=== PATIENT | female | born 1995 | race Caucasian/White ===

== ENCOUNTER → 2021-06-07 | Outpatient (CLI) | payer OTHER | LOC: M WHC 13:31 | PROVIDERS: ATTEND Advanced Practice Midwife | DX: Z34.83 Encounter for supervision of other normal pregnancy, third trimester (principal); E05.90 Thyrotoxicosis, unspecified without thyrotoxic crisis or storm; Z53.9 Procedure and treatment not carried out, unspecified reason ==

== ENCOUNTER → 2021-06-22 | Outpatient (CLI) | payer OTHER ==
--- NOTE | 2021-06-22 12:58 | REP ---
INDICATION: HYPERTHRYODISM, GROWTH. COMPARISON: None. TECHNIQUE: Routine ultrasound FINDINGS: Single living intrauterine fetus in vertex presentation. Posterior grade 2 placenta. heart rate 146 beats per minute. No placenta previa present. Three vessels noted in the umbilical cord. Size: BPD 8.5 cm, head circumference 30.7 cm, abdominal circumference 29.1 cm, femur length, 6.4 cm. The average gestational age from today's measurements is 33 weeks and 2 days. weight calculi at 21:50 6 g. Anatomic survey was completed and no anomaly is demonstrated. HARRIET calculated 08/08/2021 IMPRESSION: Living intrauterine fetus with HARRIET 08/08/2021. Vertex presentation. <Electronically signed by Mason Sotomayor > 06/22/21 [id number]
== END ==
LOC: M WHC 09:29
PROVIDERS: ATTEND Advanced Practice Midwife
DX: O99.283 Endocrine, nutritional and metabolic diseases complicating pregnancy, third trimester (principal); E05.90 Thyrotoxicosis, unspecified without thyrotoxic crisis or storm; Z3A.33 33 weeks gestation of pregnancy
CPT/HCPCS: 76811; 76820; G0463

== ENCOUNTER → 2021-06-27 | Outpatient (CLI) | payer OTHER ==
[2021-06-27 16:04] LABS: FREE T3 2.4 PG/ML (2.2-4.0); FREE T4 0.92 NG/DL (0.76-1.46); THYROID STIMULATING HORMONE 0.683 uIU/ML (0.358-3.740)
== END ==
LOC: M PLALAB 11:32
DX: O99.282 Endocrine, nutritional and metabolic diseases complicating pregnancy, second trimester (principal); E05.90 Thyrotoxicosis, unspecified without thyrotoxic crisis or storm; Z3A.26 26 weeks gestation of pregnancy

== ENCOUNTER → 2021-07-06 | Outpatient (REF) | payer OTHER | LOC: M SFHCWAGY 13:05 | PROVIDERS: ATTEND Advanced Practice Midwife | DX: Z34.83 Encounter for supervision of other normal pregnancy, third trimester (principal); Z3A.35 35 weeks gestation of pregnancy | CPT/HCPCS: 87081; G0463 ==

== ENCOUNTER → 2021-07-12 | Outpatient (CLI) | payer OTHER ==
[2021-07-12 12:46] LABS: HEMATOCRIT 35.9 % (36.0-47.0); HEMOGLOBIN 11.5 g/dl (12.0-15.5); MEAN CORPUSCULAR HEMOGLOBIN 28.2 pg (27.0-33.0); PLATELET COUNT, AUTOMATED 117 10^3/uL (150-450); RED BLOOD COUNT 4.08 10^6/uL (4.00-5.40); WHITE BLOOD COUNT 8.3 10^3/uL (4.0-10.0)
[2021-07-12 13:13] LABS: FREE T4 0.94 NG/DL (0.76-1.46); THYROID STIMULATING HORMONE 1.34 uIU/ML (0.358-3.740)
== END ==
LOC: M PLALAB 08:04
PROVIDERS: ATTEND Advanced Practice Midwife
DX: O99.283 Endocrine, nutritional and metabolic diseases complicating pregnancy, third trimester (principal)

== ENCOUNTER → 2021-07-20 | Outpatient (CLI) | payer OTHER ==
[~2021-07-20] MED LIST: ACET-683 PO; DOCU100C16 PO; IBUP-1022 PO; NOXI1TAB PO; PRENTAB9 PO; WELLTAB38 PO; vibrid PO
--- NOTE | 2021-07-20 14:22 | REP ---
INDICATION: GROWTH HYPERTHYROIDISM. COMPARISON: None. TECHNIQUE: Transabdominal scanning FINDINGS: Multiple ultrasonographic images of the gravid uterus shows a single living intrauterine gestation in the cephalic presentation. Doppler interrogation of the heart shows a heart rate of 136 beats per minute. The placenta is posterior and not low-lying. The cervix measures 1 cm in length and appears closed. The subjective amniotic fluid volume is within normal limits for the calculated amniotic fluid index is 15.5 with an expected range of 7.4-24.0. BPD: 9.1 cm 37 weeks 1 day HC: 32.6 cm 36 weeks 6 day AC: 33.0 cm 36 weeks 6 days FL: 7.2 cm 36 weeks 6 days The estimated weight is 3067 g which is at the 39th percentile for 37 week 5 day gestational age. Doppler interrogation of the umbilical artery shows an A\B ratio of 2.02. This is within the normal range. IMPRESSION: Single living intrauterine gestation as described above with an estimated gestational age of 36 weeks 5 days via composite criteria and an estimated date of delivery of 08/12/2021 by today's exam. <Electronically signed by Augustin Belcher > 07/20/21 [id number]
== END ==
LOC: M WHC 12:20
PROVIDERS: ATTEND Advanced Practice Midwife
DX: O99.283 Endocrine, nutritional and metabolic diseases complicating pregnancy, third trimester (principal); E05.90 Thyrotoxicosis, unspecified without thyrotoxic crisis or storm; Z3A.36 36 weeks gestation of pregnancy
CPT/HCPCS: 76816; 76817; 76820; G0463

== ENCOUNTER → 2021-07-29 | Outpatient (CLI) | payer OTHER ==
[2021-07-29 12:18] LABS: FREE T3 2.2 PG/ML (2.2-4.0); FREE T4 0.98 NG/DL (0.76-1.46); THYROID STIMULATING HORMONE 1.15 uIU/ML (0.358-3.740)
== END ==
LOC: M PLALAB 08:33
PROVIDERS: ATTEND Internal Medicine Endocrinology, Diabetes & Metabolism
DX: E05.90 Thyrotoxicosis, unspecified without thyrotoxic crisis or storm (principal)

== ENCOUNTER 2021-08-04 07:23 | Inpatient (IN) | payer OTHER ==
[~2021-08-04] VITALS: Ht 162.6 cm; Wt 66.1 kg
[2021-08-04] VITALS (13 sets, daily range): BP systolic 122–171; BP diastolic 79–120
[2021-08-04] MEDS ORDERED: PRENTAB9 PO (07:42)
[2021-08-04] MEDS ORDERED: WELLTAB38 PO (07:42)
[2021-08-04] MEDS ORDERED: vibrid PO (07:42)
[2021-08-04] MEDS ORDERED: NOXI1TAB PO (07:43)
[2021-08-04] MEDS ORDERED: HOME MED LIST COMPLETE! XX SCH (07:45)
[2021-08-04] MEDS ORDERED: OXYTOCIN 30 UNITS IN 0.9% NaCl 500ML IV BAG (J2590) As Ordered ONE (08:57)
[2021-08-04 09:20] LABS: HEMATOCRIT 36.1 % (36.0-47.0); HEMOGLOBIN 11.9 g/dl (12.0-15.5); MEAN CORPUSCULAR VOLUME 84.9 fl (80.0-96.0); PLATELET COUNT, AUTOMATED 112 10^3/uL (150-450); RED BLOOD COUNT 4.25 10^6/uL (4.00-5.40); WHITE BLOOD COUNT 14.8 10^3/uL (4.0-10.0)
--- NOTE | 2021-08-04 09:21 | HPEPDOC ---
Obstetrical History & Physical General Date of Admission Aug 04, 2021 at 08:51 History of Present Illness 26-year-old 2 para 0 at 39 weeks 6 days presents in active labor with co ntractions. course has been unremarkable she is a transfer care at 31 weeks from [place]. course is remarkable gestational thrombocytopenia and history of hypothyroidism currently taking PTU 30mg twice daily Chief Complaint: Contractions, term Age: 26 Dating Final EDC: Aug 05, 2021 Final EDC by: 1st trimester (US) EGA at Admission: 39 Past Medical History Past Obstetrical History : Past Obstetrical History: [employer] History: Spontaneous Past Medical History Surgical History: Hernia repair, Tonsilectomy Family History Significant Family History: Cancer, Heart disease Social History Marital Status: Psychosocial History: No pertinent psych hx * Smoker: non-smoker Alcohol: Denies Drugs: denies Allergies Coded Allergies: Penicillins (Verified Allergy, Severe, hives,swellling, 08/04/21) Medications Scheduled Bupropion HCl (Wellbutrin Xl) 150 Mg Tab.er.24h, 150 MG PO DAILY No.137/Iron/Folic Acd ( Vitamin Tablet) 1 Each Tablet, 1 TAB PO DAILY Vitamin D3/Folic Acid (Noxifol-D3 2,500 Unit-1 mg Tab) 2,500 Unit Tablet, 1 TAB PO DAILY [vibrid] , 10 MG PO DAILY Physical Examination Physical Examination GENERAL: Alert and oriented times three. BREAST: . ABDOMEN: Gravid and non-tender to touch. FETUS: Is vertex (VTX) by sterile vaginal examination (SVE), fetus is vertex (VTX) by Dieter. HEART RATE: Regular rate and rhythm. LUNGS: Clear to auscultation (CTA). Vital Signs/I&O Vital Signs Date Time Temp Pulse Resp B/P (MAP) Pulse Ox O2 Delivery O2 Flow Rate FiO2 08/04/21 07:45 97.7 76 20 127/87 (100) 97 Room Air Laboratory Data 24H LABS Laboratory Tests 2 08/04/21 08:52: CBC/BMP Pertinent Laboratoy Data Blood Type: A+ RBC Antibody Screen: Negative HIV: Negative Hepatitis B: Negative Rapid Plasma Reagin: Nonreactive Rubella: Immune Chlamydia/Gonorrhea: Negative Group B Streptococcus: Negative Glucose Tolerance Test: 108 Anatomy Ultrasound Normal Anatomy: Yes Vaginal Examination Dilation: 8 cm Effacement: 100% Station: -1, 0 Presentation: Cephalic presentation Assessment Variability: Moderate Accelerations: Positive Tocometer Contractions: Yes Frequency: regular Assessment/Plan Assessment 26-year-old 2 para 0 at 39 weeks 6 days estimated gestational age in active labor Reassuring status Plan Admit and orient. 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 Group B Streptococcus (GBS) negative. Labs and intravenous (IV) per unit protocol. Counseled on Pitocin and induction of labor (IOL). Anticipate normal spontaneous delivery (). C-S as appropriate. MARY MSART MD. Aug 04, 2021 09:21
[2021-08-04] MEDS ORDERED: LIDOCAINE 1% MDV 20ML VIAL SC STA (10:23)
[2021-08-04] MEDS ORDERED: LIDOCAINE 1% MDV 20ML VIAL As Ordered ONE (10:25)
[2021-08-04] MEDS ORDERED: ANUSOL HC CREAM 30GM TOP PRN (11:00)
[2021-08-04] MEDS ORDERED: MEASLES,MUMPS,RUBELLA VACCINE INJ (MMR-II) (90707) SC SCH (11:00)
[2021-08-04] MEDS ORDERED: METHYLERGONOVINE MALEATE 0.2 MG TAB PO PRN (11:00)
[2021-08-04] MEDS ORDERED: IBUPROFEN 600MG TAB PO PRN (11:00)
[2021-08-04] MEDS ORDERED: IBUPROFEN 800 MG TAB PO PRN (11:00)
[2021-08-04] MEDS ORDERED: RHOGAM 300 MCG (1500 IU) INJ (J2790) IM SCH (11:00)
[2021-08-04] MEDS ORDERED: OXYTOCIN DRIP 30 UNITS in IV 1 EA IV SCH (11:00)
[2021-08-04] MEDS ORDERED: MOM 30ML SUSPENSION UDC PO PRN (11:00)
[2021-08-04] MEDS ORDERED: ACETAMINOPHEN TAB 650MG DOSE (2X325MG) PO PRN (11:00)
--- NOTE | 2021-08-04 11:01 | DNPDOC ---
[facility] Delivery Note Delivery Note DATE OF DELIVERY: August 04, 2021 TIME OF : 1020 GENDER: Male. APGARS: 9 and 9. WEIGHT: 3610 grams or 7 pounds 15ounces. LACERATIONS: 2MLL ANESTHESIA: None ESTIMATED BLOOD LOSS: 300 ml COUNTS: 5 laparotomy sponges accounted for prior to after delivery. 3 sharps removed from delivery field. DELIVERY NOTE: On August 04, 2021 at 1020 Mrs. Cannon is a 26-year-old 2 now para 1 had a spontaneous vaginal delivery of a liveborn male Apgars 9 and 9 weight was 3610 g or 7 pounds 15 ounces. Head was delivered occiput anterior (OA), followed by delivery of the shoulders and corpus. Infant was handed to mom with a good cry. Cord was clamped times two and was cut by support person under my direction. Placenta was then drained and delivered grossly intact. A premixed bag of 500 mL of normal saline with 30 units of Pitocin was then bolused along with uterine massage until the uterus was firm. On inspection there was a 2MLL that was repaired with 3-0 Vicryl after infusion with 1% lidocaine. On reinspection, cervix, vagina, perineum was grossly intact and hemostatic. Mom and baby in recovery on stable condition. Couples decided to do a new son Ayaan. MARY SMART MD. Aug 04, 2021 11:01
[2021-08-04] MEDS: buPROPion **XL** TABLET 150MG (WELLBUTRIN XL) PO SCH (12:21)
[2021-08-04] MEDS: PRENATAL VITAMINS CHEWABLE TABLET PO SCH (12:21)
[2021-08-04] MEDS: DIBUCAINE 1% OINTMENT 30GM TOP PRN (15:23)
[2021-08-05 05:23] VITALS: BP 120/73
[2021-08-05] MEDS ORDERED: INFLUENZA QUADRIVALENT PF VACCINE 0.5ML SYRINGE IM ONE (09:00)
[2021-08-05] MEDS: buPROPion **XL** TABLET 150MG (WELLBUTRIN XL) PO SCH (09:09)
[2021-08-05] MEDS: PRENATAL VITAMINS CHEWABLE TABLET PO SCH (09:09)
[2021-08-05] MEDS: DIBUCAINE 1% OINTMENT 30GM TOP PRN (10:38)
[2021-08-05] MEDS: ACETAMINOPHEN 500 MG TAB PO PRN (16:49)
[2021-08-05] MEDS: DOCUSATE SODIUM 100MG CAPSULE PO PRN (18:20)
[2021-08-05 18:35] VITALS: BP 122/93
[2021-08-06 06:00] VITALS: BP 123/84
[2021-08-06] MEDS: DIBUCAINE 1% OINTMENT 30GM TOP PRN (06:34)
[2021-08-06] MEDS: PRENATAL VITAMINS CHEWABLE TABLET PO SCH (08:45)
[2021-08-06] MEDS: buPROPion **XL** TABLET 150MG (WELLBUTRIN XL) PO SCH (08:46)
[2021-08-06] MEDS ORDERED: ACET-683 PO (10:52)
[2021-08-06] MEDS ORDERED: IBUP-1022 PO (10:52)
[2021-08-06] MEDS ORDERED: DOCU100C16 PO (10:52)
[2021-08-06] MEDS: DOCUSATE SODIUM 100MG CAPSULE PO PRN (12:23)
[2021-08-06] MEDS: ACETAMINOPHEN 500 MG TAB PO PRN (12:23)
--- NOTE | 2021-08-06 12:40 | IPNPDOC ---
Progress Note Date of Service: Aug 06, 2021 Day#: 2 Progress Note SUBJECT: Patient is a 26-year-old G 2 P 1011 status post uncomplicated vaginal delivery at 39-6/7 weeks' doing well day #2. She has been ambulating, voiding spontaneously without issue and tolerating regular diet. Breast feeding without issue. Reports lochia is like a normal period. Patient is ambulating well. Reports some cramping, well controlled with medication. Voiding and ambulating without difficulty. OBJECTIVE: VITAL SIGNS: Within normal limits, afebrile. Alert and oriented times three. Breath sounds clear to auscultation. Heart rate: Regular rate and rhythm, no murmurs, rubs or gallops. Abdomen: Fundus firm at U-2. Soft, NTTP. Minimal to moderate lochia. ASSESSMENT: Patient is a 26-year-old G 2 P 1011 status post uncomplicated vaginal delivery after presenting to labor and delivery with contractions. Doing well on day 2. Vitals within normal limits, afebrile, hemodynamically stable with no evidence of infection. PLAN: 1. Discharge to home today. 2. Tylenol and Motrin for pain. 3. Encourage breast feeding and ambulation. 4. Patient declined contraception 5. Routine PP visit in 6 weeks in clinic. 6. Discussed return precautions at length. VS, I&O, 24H, Fishbone Vital Signs/I&O Vital Signs Date Time Temp Pulse Resp B/P (MAP) Pulse Ox O2 Delivery O2 Flow Rate FiO2 08/06/21 06:00 97.3 83 16 123/84 (97) 97 Room Air VANESSA SOTO MD Aug 06, 2021 12:40
== END 2021-08-06 12:40 | disposition home or self-care (01) | DRG 807 ==
LOC: M LDO 07:23 → M LDI 08:51 → M OBS 14:20
PROVIDERS: ADMIT Obstetrics & Gynecology; ATTEND Obstetrics & Gynecology
PROC: 10E0XZZ Delivery of Products of Conception, External Approach (ICD-10-PCS; principal; 2021-08-04)
PROC: 0KQM0ZZ Repair Perineum Muscle, Open Approach (ICD-10-PCS; 2021-08-04)
DX: O99.12 Other diseases of the blood and blood-forming organs and certain disorders involving the immune mechanism complicating childbirth (principal); Z37.0 Single live birth; D69.6 Thrombocytopenia, unspecified; O99.284 Endocrine, nutritional and metabolic diseases complicating childbirth; E03.9 Hypothyroidism, unspecified; Z3A.39 39 weeks gestation of pregnancy; O70.1 Second degree perineal laceration during delivery

== ENCOUNTER → 2021-09-16 | Outpatient (CLI) | payer OTHER ==
[2021-09-16 11:50] LABS: FREE T3 2.5 PG/ML (2.2-4.0); FREE T4 0.9 NG/DL (0.76-1.46); THYROID STIMULATING HORMONE 0.758 uIU/ML (0.358-3.740)
== END ==
LOC: M PLALAB 08:07
PROVIDERS: ATTEND Internal Medicine Endocrinology, Diabetes & Metabolism
DX: E05.90 Thyrotoxicosis, unspecified without thyrotoxic crisis or storm (principal)

== ENCOUNTER → 2021-12-16 | Outpatient (REF) | payer OTHER | LOC: M SFHCWAGY 17:11 | PROVIDERS: ATTEND Obstetrics & Gynecology | DX: Z12.4 Encounter for screening for malignant neoplasm of cervix (principal) ==

== ENCOUNTER → 2021-12-22 | Outpatient (CLI) | payer OTHER ==
[2021-12-22 11:35] LABS: BASO % 0.6 % (0.0-1.0); EOS # 0.1 10^3/uL (0.0-0.5); EOS % 2.2 % (0.0-3.0); HEMATOCRIT 39.9 % (36.0-47.0); LYMPH # 1.7 10^3/uL (1.5-5.0); LYMPH % 31.9 % (24.0-44.0); MEAN CORPUSCULAR HEMOGLOBIN 28.6 pg (27.0-33.0); MEAN CORPUSCULAR HGB CONC 32.6 g/dl (32.0-36.5); MEAN CORPUSCULAR VOLUME 87.9 fl (80.0-96.0); MONO # 0.3 10^3/uL (0.0-0.8); MONO % 5.8 % (2.0-8.0); NEUTROPHILS # 3.2 10^3/uL (1.5-8.5); NEUTROPHILS % 59.1 % (36.0-66.0); PLATELET COUNT, AUTOMATED 205 10^3/uL (150-450); RED BLOOD COUNT 4.54 10^6/uL (4.00-5.40); WHITE BLOOD COUNT 5.4 10^3/uL (4.0-10.0)
[2021-12-22 12:23] LABS: FREE T3 2.3 PG/ML (2.2-4.0); FREE T4 0.94 NG/DL (0.76-1.46); THYROID STIMULATING HORMONE 1.08 uIU/ML (0.358-3.740)
== END ==
LOC: M PLALAB 08:05
PROVIDERS: ATTEND Internal Medicine Endocrinology, Diabetes & Metabolism
DX: E05.90 Thyrotoxicosis, unspecified without thyrotoxic crisis or storm (principal)

== ENCOUNTER → 2022-06-15 | Outpatient (CLI) | payer OTHER ==
[2022-06-15 12:08] LABS: FREE T4 0.96 NG/DL (0.76-1.46); THYROID STIMULATING HORMONE 0.957 uIU/ML (0.358-3.740)
[2022-06-20 04:11] LABS: FREE T3 2.5 PG/ML (2.2-4.0)
== END ==
LOC: M PLALAB 08:03
PROVIDERS: ATTEND Internal Medicine Endocrinology, Diabetes & Metabolism
DX: E06.3 Autoimmune thyroiditis (principal)

== ENCOUNTER → 2022-12-05 | Outpatient (CLI) | payer OTHER ==
[2022-12-05 13:47] LABS: FREE T4 1.25 NG/DL (0.89-1.76); THYROID STIMULATING HORMONE 0.399 uIU/ML (0.55-4.78)
== END ==
LOC: M PLALAB 10:23
PROVIDERS: ATTEND Internal Medicine Endocrinology, Diabetes & Metabolism
DX: E06.3 Autoimmune thyroiditis (principal)

== ENCOUNTER → 2022-12-05 | Outpatient (CLI) | payer OTHER ==
[2022-12-05 13:23] LABS: BASO % 0.5 % (0.0-1.0); EOS # 0.2 10^3/uL (0.0-0.5); EOS % 2.1 % (0.0-3.0); LYMPH # 1.6 10^3/uL (1.5-5.0); LYMPH % 21.6 % (24.0-44.0); MEAN CORPUSCULAR HEMOGLOBIN 28.5 pg (27.0-33.0); MEAN CORPUSCULAR HGB CONC 31.8 g/dl (32.0-36.5); MEAN CORPUSCULAR VOLUME 89.6 fl (80.0-96.0); MONO # 0.5 10^3/uL (0.0-0.8); MONO % 6.6 % (2.0-8.0); NEUTROPHILS # 5.1 10^3/uL (1.5-8.5); NEUTROPHILS % 68.8 % (36.0-66.0); PLATELET COUNT, AUTOMATED 226 10^3/uL (150-450); RED BLOOD COUNT 4.91 10^6/uL (4.00-5.40); WHITE BLOOD COUNT 7.5 10^3/uL (4.0-10.0)
[2022-12-05 13:48] LABS: IRON (FE) 187 UG/DL (50-170); PERCENT SATURATION 51.9 % (13.2-45.0); TOTAL IRON BINDING CAPACITY 360 UG/DL (250-425)
[2022-12-05 13:49] LABS: ALBUMIN 3.9 G/DL (3.2-5.2); ALKALINE PHOSPHATASE 48 U/L (46-116); ALT/SGPT 17 U/L (7.0-40); AST/SGOT 20 U/L (<34); BILIRUBIN,TOTAL 1.6 MG/DL (0.3-1.2); BLOOD UREA NITROGEN 12 MG/DL (9-23); CALCIUM LEVEL 9.3 MG/DL (8.5-10.1); CARBON DIOXIDE LEVEL 28 MMOL/L (20-31); CHLORIDE LEVEL 105 MMOL/L (98-107); GLOMERULAR FILTRATION RATE > 60.0 (>60); GLUCOSE, FASTING 77 MG/DL (60-100); POTASSIUM SERUM 4.4 MMOL/L (3.5-5.1); SODIUM LEVEL 140 MMOL/L (136-145); TOTAL PROTEIN 6.5 G/DL (5.7-8.2)
== END ==
LOC: M PLALAB 10:25
PROVIDERS: ATTEND Nurse Practitioner Adult Health
DX: Z13.228 Encounter for screening for other metabolic disorders (principal); Z13.29 Encounter for screening for other suspected endocrine disorder

== ENCOUNTER → 2023-02-12 | Outpatient (REF) | payer OTHER | LOC: M SFHCWAGY 10:04 | PROVIDERS: ATTEND Obstetrics & Gynecology | DX: Z01.419 Encounter for gynecological examination (general) (routine) without abnormal findings (principal) ==

== ENCOUNTER → 2023-03-27 | Outpatient (CLI) | payer OTHER ==
[2023-03-27 14:29] LABS: FREE T3 3.1 PG/ML (2.3-4.2); FREE T4 1.08 NG/DL (0.89-1.76)
[2023-03-27 14:30] LABS: THYROID STIMULATING HORMONE 0.885 uIU/ML (0.55-4.78)
== END ==
LOC: M PLALAB 09:05
PROVIDERS: ATTEND Internal Medicine Endocrinology, Diabetes & Metabolism
DX: E05.90 Thyrotoxicosis, unspecified without thyrotoxic crisis or storm (principal); E06.3 Autoimmune thyroiditis

== ENCOUNTER → 2023-03-27 | Outpatient (CLI) | payer OTHER ==
[2023-03-27 13:58] LABS: BASO % 0.5 % (0.0-1.0); EOS # 0.1 10^3/uL (0.0-0.5); EOS % 1.6 % (0.0-3.0); HEMOGLOBIN 12.9 g/dl (12.0-15.5); LYMPH # 1.6 10^3/uL (1.5-5.0); LYMPH % 27.7 % (24.0-44.0); MEAN CORPUSCULAR HEMOGLOBIN 28.7 pg (27.0-33.0); MEAN CORPUSCULAR HGB CONC 32.3 g/dl (32.0-36.5); MEAN CORPUSCULAR VOLUME 88.9 fl (80.0-96.0); MONO # 0.4 10^3/uL (0.0-0.8); MONO % 6.6 % (2.0-8.0); NEUTROPHILS # 3.6 10^3/uL (1.5-8.5); NEUTROPHILS % 63.1 % (36.0-66.0); PLATELET COUNT, AUTOMATED 173 10^3/uL (150-450); WHITE BLOOD COUNT 5.7 10^3/uL (4.0-10.0)
[2023-03-27 14:28] LABS: ALBUMIN 3.7 G/DL (3.2-5.2); BILIRUBIN,DIRECT 0.5 MG/DL (<0.4); BILIRUBIN,TOTAL 1.4 MG/DL (0.3-1.2); PERCENT SATURATION 37.5 % (13.2-45.0); TOTAL PROTEIN 6.2 G/DL (5.7-8.2)
[2023-03-27 14:30] LABS: FERRITIN 24.6 NG/ML (7.3-270.7)
[2023-03-27 14:31] LABS: FOLATE 18.52 NG/ML (>5.4)
== END ==
LOC: M PLALAB 09:07
PROVIDERS: ATTEND Nurse Practitioner Adult Health
DX: D69.6 Thrombocytopenia, unspecified (principal)

== ENCOUNTER → 2023-08-16 | Outpatient (CLI) | payer OTHER ==
[2023-08-16 15:34] LABS: FREE T4 1.1 NG/DL (0.89-1.76)
[2023-08-16 15:35] LABS: THYROID STIMULATING HORMONE 1.05 uIU/ML (0.55-4.78)
== END ==
LOC: M PLALAB 09:46
PROVIDERS: ATTEND Internal Medicine Endocrinology, Diabetes & Metabolism
DX: E06.3 Autoimmune thyroiditis (principal); Z11.59 Encounter for screening for other viral diseases

== ENCOUNTER → 2023-08-16 | Outpatient (CLI) | payer OTHER ==
[2023-08-18 17:08] LABS: HERPES ZOSTER, VARICELLA IgG <135 index (Immune >165); HERPES ZOSTER, VARICELLA IgM <0.91 index (0.00-0.90)
== END ==
LOC: M PLALAB 09:45
PROVIDERS: ATTEND Nurse Practitioner Adult Health
DX: Z11.59 Encounter for screening for other viral diseases (principal)

== ENCOUNTER → 2024-01-01 | Outpatient (CLI) | payer OTHER ==
[2024-01-01 15:55] LABS: FREE T4 1.04 NG/DL (0.89-1.76); THYROID STIMULATING HORMONE 1.12 uIU/ML (0.55-4.78)
== END ==
LOC: M PLALAB 13:09
PROVIDERS: ATTEND Internal Medicine Endocrinology, Diabetes & Metabolism
DX: E05.90 Thyrotoxicosis, unspecified without thyrotoxic crisis or storm (principal)

== ENCOUNTER → 2024-02-07 | Outpatient (CLI) | payer OTHER ==
[2024-02-07 14:15] LABS: THYROID STIMULATING HORMONE 1.232 uIU/ML (0.55-4.78)
[2024-02-07 14:17] LABS: FREE T4 1.14 NG/DL (0.89-1.76)
== END ==
LOC: M PLALAB 09:17
PROVIDERS: ATTEND Internal Medicine Endocrinology, Diabetes & Metabolism
DX: E05.90 Thyrotoxicosis, unspecified without thyrotoxic crisis or storm (principal); K40.30 Unilateral inguinal hernia, with obstruction, without gangrene, not specified as recurrent; D69.6 Thrombocytopenia, unspecified; R79.0 Abnormal level of blood mineral

== ENCOUNTER → 2024-02-07 | Outpatient (CLI) | payer OTHER ==
[2024-02-07 13:40] LABS: BASO % 0.7 % (0.0-1.0); EOS # 0.1 10^3/uL (0.0-0.5); EOS % 2.1 % (0.0-3.0); HEMATOCRIT 42.6 % (36.0-47.0); HEMOGLOBIN 13.9 g/dl (12.0-15.5); LYMPH # 1.7 10^3/uL (1.5-5.0); LYMPH % 29.9 % (24.0-44.0); MEAN CORPUSCULAR HEMOGLOBIN 29.3 pg (27.0-33.0); MEAN CORPUSCULAR HGB CONC 32.6 g/dl (32.0-36.5); MEAN CORPUSCULAR VOLUME 89.9 fl (80.0-96.0); MONO # 0.4 10^3/uL (0.0-0.8); MONO % 6.7 % (2.0-8.0); NEUTROPHILS # 3.4 10^3/uL (1.5-8.5); NEUTROPHILS % 60.4 % (36.0-66.0); PLATELET COUNT, AUTOMATED 164 10^3/uL (150-450); RED BLOOD COUNT 4.74 10^6/uL (4.00-5.40); WHITE BLOOD COUNT 5.7 10^3/uL (4.0-10.0)
[2024-02-07 14:13] LABS: PERCENT SATURATION 46.1 % (13.2-45.0)
== END ==
LOC: M PLALAB 09:19
PROVIDERS: ATTEND Nurse Practitioner Adult Health
DX: K40.30 Unilateral inguinal hernia, with obstruction, without gangrene, not specified as recurrent (principal); D69.6 Thrombocytopenia, unspecified; R79.0 Abnormal level of blood mineral

== ENCOUNTER → 2024-02-14 | Outpatient (REF) | payer OTHER | LOC: M SFHCWAGY 17:23 | PROVIDERS: ATTEND Obstetrics & Gynecology | DX: Z01.419 Encounter for gynecological examination (general) (routine) without abnormal findings (principal) | CPT/HCPCS: 87624; G0123 ==

== ENCOUNTER → 2024-06-16 | Outpatient (REF) | payer OTHER | LOC: M LAB REF 15:55 | PROVIDERS: ATTEND Physician Assistant | DX: R19.7 Diarrhea, unspecified (principal) ==

== ENCOUNTER → 2024-08-19 | Outpatient (CLI) | payer OTHER ==
[2024-08-19 15:17] LABS: THYROID STIMULATING HORMONE 0.654 uIU/ML (0.55-4.78)
[2024-08-19 15:18] LABS: FREE T3 3.5 PG/ML (2.3-4.2)
[2024-08-19 15:19] LABS: FREE T4 1.27 NG/DL (0.89-1.76)
== END ==
LOC: M PLALAB 12:07
PROVIDERS: ATTEND Internal Medicine Endocrinology, Diabetes & Metabolism
DX: E06.3 Autoimmune thyroiditis (principal)

== ENCOUNTER → 2024-10-22 | Outpatient (CLI) | payer OTHER ==
[2024-10-22 12:55] LABS: HEMATOCRIT 40.4 % (36.0-47.0); HEMOGLOBIN 13.7 g/dl (12.0-15.5); MEAN CORPUSCULAR HEMOGLOBIN 29.7 pg (27.0-33.0); MEAN CORPUSCULAR HGB CONC 33.9 g/dl (32.0-36.5); MEAN CORPUSCULAR VOLUME 87.4 fl (80.0-96.0); PLATELET COUNT, AUTOMATED 162 10^3/uL (150-450); RED BLOOD COUNT 4.62 10^6/uL (4.00-5.40); WHITE BLOOD COUNT 8.7 10^3/uL (4.0-10.0)
[2024-10-22 13:09] LABS: APPEARANCE, URINE CLEAR (CLEAR); BACTERIA, URINE AUTO 2+ (NEGATIVE); BILIRUBIN, URINE AUTO NEGATIVE (NEGATIVE); BLOOD, URINE BLOOD NEGATIVE (NEGATIVE); COLOR, URINE YELLOW (YELLOW); GLUCOSE, URINE (UA) AUTO NEGATIVE (NEGATIVE); KETONE, URINE AUTO NEGATIVE (NEGATIVE); LEUKOCYTE ESTERASE, URINE AUTO NEGATIVE (NEGATIVE); NITRITE, URINE AUTO NEGATIVE (NEGATIVE); PROTEIN, URINE AUTO NEGATIVE (NEGATIVE); RBC, URINE AUTO 0 /HPF (0-3); SPECIFIC GRAVITY URINE AUTO 1.004 (1.002-1.035); SQUAMOUS EPITHELIAL CELL UR AU 1 /HPF (0-6); UROBILINOGEN, URINE AUTO 0.2 mg/dL (0.0-2.0); WBC, URINE AUTO 0 /HPF (0-3)
[2024-10-22 14:10] LABS: HEPATITIS B SURFACE ANTIGEN NEGATIVE (NEGATIVE)
[2024-10-22 14:24] LABS: HIV 1&2 SCREEN NEGATIVE (NEGATIVE)
[2024-10-22 14:28] LABS: GC DNA AMPLIFICATION NEGATIVE (NEGATIVE)
== END ==
LOC: M PLALAB 10:12
PROVIDERS: ATTEND Midwife
DX: Z34.80 Encounter for supervision of other normal pregnancy, unspecified trimester (principal)

== ENCOUNTER → 2024-10-22 | Outpatient (CLI) | payer OTHER ==
[2024-10-22 13:32] LABS: FREE T3 3.6 PG/ML (2.3-4.2); FREE T4 1.25 NG/DL (0.89-1.76); THYROID STIMULATING HORMONE 1.113 uIU/ML (0.55-4.78)
== END ==
LOC: M PLALAB 10:09
PROVIDERS: ATTEND Internal Medicine Endocrinology, Diabetes & Metabolism
DX: E06.3 Autoimmune thyroiditis (principal)

== ENCOUNTER → 2024-10-24 | Outpatient (CLI) | payer OTHER | LOC: M PLALAB 10:20 | PROVIDERS: ATTEND Midwife | DX: Z34.80 Encounter for supervision of other normal pregnancy, unspecified trimester (principal) ==

== ENCOUNTER → 2024-10-31 | Outpatient (CLI) | payer OTHER ==
[2024-10-31 13:57] LABS: FREE T4 1.15 NG/DL (0.89-1.76); THYROID STIMULATING HORMONE 0.753 uIU/ML (0.55-4.78)
== END ==
LOC: M PLALAB 11:08
PROVIDERS: ATTEND Internal Medicine Endocrinology, Diabetes & Metabolism
DX: E06.3 Autoimmune thyroiditis (principal)

== ENCOUNTER → 2024-11-28 | Outpatient (CLI) | payer OTHER | LOC: M WHC 06:47 | PROVIDERS: ATTEND Midwife | DX: Z34.80 Encounter for supervision of other normal pregnancy, unspecified trimester (principal); Z3A.11 11 weeks gestation of pregnancy ==

== ENCOUNTER → 2024-12-04 | Outpatient (CLI) | payer OTHER | LOC: M PLALAB 13:03 | PROVIDERS: ATTEND Internal Medicine Endocrinology, Diabetes & Metabolism | DX: E06.3 Autoimmune thyroiditis (principal) ==

== ENCOUNTER → 2025-01-02 | Outpatient (CLI) | payer OTHER | LOC: M PLALAB 15:03 | PROVIDERS: ATTEND Internal Medicine Endocrinology, Diabetes & Metabolism | DX: E06.3 Autoimmune thyroiditis (principal) ==

== ENCOUNTER → 2025-02-02 | Outpatient (CLI) | payer OTHER | LOC: M PLALAB 07:59 | PROVIDERS: ATTEND Internal Medicine Endocrinology, Diabetes & Metabolism | DX: E06.3 Autoimmune thyroiditis (principal) ==

== ENCOUNTER → 2025-02-02 | Outpatient (CLI) | payer OTHER | LOC: M WHC 06:47 | PROVIDERS: ATTEND Midwife | DX: Z36.89 Encounter for other specified antenatal screening (principal); O32.2XX0 Maternal care for transverse and oblique lie, not applicable or unspecified; O28.3 Abnormal ultrasonic finding on antenatal screening of mother ==

== ENCOUNTER → 2025-02-09 | Outpatient (CLI) | payer OTHER | LOC: M WHC 09:37 | PROVIDERS: ATTEND Midwife | DX: O32.2XX0 Maternal care for transverse and oblique lie, not applicable or unspecified (principal); Z3A.21 21 weeks gestation of pregnancy ==

== ENCOUNTER → 2025-02-23 | Outpatient (CLI) | payer OTHER ==
[2025-02-23 13:21] LABS: FREE T4 1.05 NG/DL (0.89-1.76); THYROID STIMULATING HORMONE 1.094 uIU/ML (0.55-4.78)
== END ==
LOC: M PLALAB 11:22
PROVIDERS: ATTEND Internal Medicine Endocrinology, Diabetes & Metabolism
DX: E06.3 Autoimmune thyroiditis (principal)

== ENCOUNTER → 2025-03-23 | Outpatient (CLI) | payer OTHER ==
[2025-03-23 14:47] LABS: HEMATOCRIT 36.8 % (36.0-47.0); HEMOGLOBIN 11.8 g/dl (12.0-15.5); MEAN CORPUSCULAR HEMOGLOBIN 29.1 pg (27.0-33.0); MEAN CORPUSCULAR HGB CONC 32.1 g/dl (32.0-36.5); MEAN CORPUSCULAR VOLUME 90.9 fl (80.0-96.0); PLATELET COUNT, AUTOMATED 142 10^3/uL (150-450); RED BLOOD COUNT 4.05 10^6/uL (4.00-5.40); WHITE BLOOD COUNT 11.4 10^3/uL (4.0-10.0)
== END ==
LOC: M PLAIMG 10:28
PROVIDERS: ATTEND Midwife
DX: Z34.80 Encounter for supervision of other normal pregnancy, unspecified trimester (principal); Z3A.00 Weeks of gestation of pregnancy not specified

== ENCOUNTER → 2025-03-23 | Outpatient (CLI) | payer OTHER ==
[2025-03-23 14:59] LABS: THYROID STIMULATING HORMONE 1.125 uIU/ML (0.55-4.78)
[2025-03-23 15:00] LABS: FREE T4 1.02 NG/DL (0.89-1.76)
== END ==
LOC: M PLALAB 10:33
PROVIDERS: ATTEND Internal Medicine Endocrinology, Diabetes & Metabolism
DX: E06.3 Autoimmune thyroiditis (principal)

== ENCOUNTER → 2025-05-28 | Outpatient (CLI) | payer OTHER ==
[2025-05-28 17:59] LABS: PLATELET COUNT, AUTOMATED 135 10^3/uL (150-450)
== END ==
LOC: M PLALAB 14:12
PROVIDERS: ATTEND Midwife
DX: Z34.80 Encounter for supervision of other normal pregnancy, unspecified trimester (principal)

== ENCOUNTER → 2025-05-28 | Outpatient (CLI) | payer OTHER ==
[~2025-05-28] MED LIST changes: -IBUP-1022 PO; +IBUP600T42 PO
[2025-05-28 18:01] LABS: FREE T4 1.04 NG/DL (0.89-1.76)
== END ==
LOC: M PLALAB 14:15
PROVIDERS: ATTEND Internal Medicine Endocrinology, Diabetes & Metabolism
DX: E06.3 Autoimmune thyroiditis (principal)

== ENCOUNTER → 2025-09-08 | Outpatient (CLI) | payer OTHER ==
[2025-09-08 14:08] LABS: FREE T4 1.43 NG/DL (0.89-1.76)
== END ==
LOC: M PLALAB 11:49
PROVIDERS: ATTEND Internal Medicine Endocrinology, Diabetes & Metabolism
DX: E06.3 Autoimmune thyroiditis (principal)